=== PATIENT | male | born 1995 | race Caucasian/White ===

== ENCOUNTER 2017-11-16 15:16 | Emergency (ER) | payer MEDICAID ==
--- NOTE | 2017-11-16 15:32 | EDPHY ---
H & P Stated Complaint: feels flu like cough/post tussive emesis/justin Time Seen by Provider: 11/16/17 15:31 HPI/ROS: HPI: This is a 22-year-old male who presents with Chief Complaint: feels flu like cough/post tussive emesis/justin Location:chest Quality: Cough Duration: 12 are Signs and Symptoms: no fever, no nausea, no vomiting, no diarrhea, no urinary symptoms, no chest pain, no shortness of breath, no wheezing, + productive cough , no sore throat, no neck stiffness, no joint pain, no swollen glands, no ear pain, no rash Timing: Acute Severity: Moderate Context: Patient is an every day smoker, presents with sudden onset productive cough that started yesterday. Patient reports that he has generalized chills, fatigue. He reports that he has morning smoker's cough at baseline. No history of lung disease. His is currently in the hospital have and their 2nd child. No other family members are sick. Patient complains that he is " coughing so hard that he vomits." Modifying Factors: None Comment: ROS: see HPI Constitutional: + fever, no chills, no weight loss Eyes: No blurred vision Respiratory: No shortness of breath, +cough Cardiovascular: No chest pain, no palpitations Gastrointestinal: No nausea, no vomiting, no diarrhea, no hematemesis, no blood in stool Genitourinary: No dysuria, no blood in urine Extremities: No myalgias, no edema Neurologic: No weakness, no numbness Skin: No rashes, no petechiae Hematologic: No bruising, no bleeding MEDICAL/SURGICAL/SOCIAL HISTORY: Medical history: Generally healthy. Does not take any regular medications. Surgical history: Denies Social history: Current every day smoker. Family history noncontributory. CONSTITUTIONAL: Well-appearing young adult white male, awake and alert, no obvious distress HEENT: Atraumatic and normocephalic, PERRL, EOMI. Nares patent; no rhinorrhea; no nasal mucosal edema. Tympanic membranes clear. Oropharynx clear, no exudate and moist pink mucosa. Airway patent. No lymphadenopathy. No meningismus. Cardiovascular: Normal S1/S2, regular rate, regular rhythm, without murmur rub or gallop. PULMONARY/CHEST: Symmetrical and nontender. Clear to auscultation bilaterally. Good air movement. No accessory muscle usage. ABDOMEN: Soft, nondistended, nontender, no rebound, no guarding, no peritoneal signs, no masses or organomegaly. No CVAT. EXTREMITIES: 2/2 pulses, strength 5/5, no deformities, no clubbing, no cyanosis or edema. NEUROLOGICAL: no focal neuro deficits. GCS 15. SKIN: Warm and dry, no erythema. no rash. Good capillary refill. Source: Patient Exam Limitations: No limitations - Personal History Current Tetanus/Diphtheria Vaccine: Yes - Medical/Surgical History Hx Asthma: No Hx Chronic Respiratory Disease: No Hx Diabetes: No Hx Cardiac Disease: No Hx Renal Disease: No Hx Cirrhosis: No Hx Alcoholism: No Hx HIV/AIDS: No Hx Splenectomy or Spleen Trauma: No Other PMH: denies - Social History Smoking Status: Current every day smoker Constitutional: Initial Vital Signs Temperature (C) 36.9 C 11/16/17 15:23 Heart Rate 73 11/16/17 15:23 Respiratory Rate 18 11/16/17 15:23 Blood Pressure 111/66 11/16/17 15:23 O2 Sat (%) 97 11/16/17 15:23 O2 Delivery Mode Room Air Allergies/Adverse Reactions: No Known Allergies Allergy (Unverified 11/16/17 15:23) Home Medications: Medication Instructions Recorded Albuterol Sulfate [Proair Hfa] 1 - 2 puffs IH Q4 PRN #1 hfa.aer.ad 11/16/17 Benzonatate [Tessalon Pearles (RX)] 100 mg PO Q6 PRN #12 cap 11/16/17 Doxycycline Hyclate 100 mg PO BID #14 tab 11/16/17 Medical Decision Making - Diagnostics Imaging Results: Imaging Impressions Chest X-Ray 11/16/17 15:37 IMPRESSION: Normal chest x-ray. ED Course/Re-evaluation: Vital signs reviewed and stable upon arrival. No signs of hypoxia, tachycardia. I thought about pulmonary embolism and doubt as Wells criteria is low. Chest x-ray ordered and my read shows no signs of pneumonia. No pneumothorax, no effusion. Given the fact that the patient is a smoker, will treat for bacterial bronchitis with doxycycline, albuterol inhaler, Tessalon Perles. This patient was seen under the supervision of my secondary supervising physician. I evaluated care for this patient independently. Discussed this patient with Dr. Garay who did not see the patient. Differential Diagnosis: Differential diagnosis includes but is not limited to bronchitis, pneumonia, pneumothorax, pneumonitis, pulmonary embolism. Departure - Departure Disposition: Home, Routine, Self-Care Clinical Impression: Tobacco user, Acute bacterial bronchitis Condition: Good Instructions: How to Stop Smoking (ED), Acute Bronchitis (ED) Additional Instructions: Please refrain from smoking and consider quitting for good. Use Tessalon Perles every 6 hr as needed for coughing. Take doxycycline 100 mg twice daily x7 days. Do not skip a dose. Use albuterol inhaler every 4 hr as needed for shortness of breath, wheezing. Return to the ER immediately if you experience fevers/chills, shortness of breath, abdominal pain, inability to tolerate oral intake, or any other symptoms that concern you. Referrals: [facility],. [Clinic] - As per Instructions Prescriptions: Albuterol Sulfate [Proair Hfa] 1 - 2 puffs IH Q4 PRN #1 hfa.aer.ad PRN Reason: Short Of Breath/Dyspnea Benzonatate [Tessalon Pearles (RX)] 100 mg PO Q6 PRN #12 cap PRN Reason: Cough, Moderate Doxycycline Hyclate 100 mg PO BID #14 tab
[2017-11-16 16:31] VITALS: BP 108/64
== END 2017-11-16 16:20 | disposition home or self-care (01) ==
DX: J20.9 Acute bronchitis, unspecified (principal); F17.200 Nicotine dependence, unspecified, uncomplicated